=== PATIENT | male | born 1980 | race Two or more races ===

== ENCOUNTER 2021-05-01 09:11 | Emergency (ER) | payer MEDICAID, OTHER ==
[~2021-05-01] VITALS: Ht 165.1 cm; Wt 79.8 kg
[2021-05-01] MEDS ORDERED: IBUP800T27 PO (09:40)
[2021-05-01] MEDS ORDERED: CLIN300C8 PO (09:40)
[2021-05-01 09:42] VITALS: BP 164/82
[2021-05-01] MEDS ORDERED: cefTRIAXone SOD 1,000 MG VL IM ONE (09:45)
[2021-05-01] MEDS ORDERED: IBUPROFEN 800 MG TAB PO ONE (09:45)
== END 2021-05-01 10:04 | disposition home or self-care (01) ==
LOC: ER 09:11
DX: K04.7 Periapical abscess without sinus (principal); J45.909 Unspecified asthma, uncomplicated
CPT/HCPCS: 96372; 99283; J0696

== ENCOUNTER 2021-10-09 12:44 | Emergency (ER) | payer MEDICAID ==
[~2021-10-09] VITALS: Ht 165.1 cm; Wt 79.8 kg
[~2021-10-09 12:44] MED LIST: CLIN300C8 PO; IBUP800T27 PO
[2021-10-09] MEDS ORDERED: IBUP800T27 PO (14:22)
[2021-10-09] MEDS ORDERED: TAM04C PO (14:22)
[2021-10-09 14:45] VITALS: BP 139/80
== END 2021-10-09 14:48 | disposition home or self-care (01) ==
LOC: ER 12:44
DX: K42.9 Umbilical hernia without obstruction or gangrene (principal); N20.0 Calculus of kidney; J45.909 Unspecified asthma, uncomplicated
CPT/HCPCS: 74176